=== PATIENT | male | born 1940 | race Caucasian/White ===

== ENCOUNTER 2023-01-06 10:38 | Outpatient (CLI) | payer BC ==
[2023-01-06] MEDS ORDERED: Magnevist 469MG/ML 20 ML VIAL ONE (13:25)
== END 2023-01-06 10:39 | disposition home or self-care (01) ==
LOC: CSHMRI 10:38
PROVIDERS: ATTEND Urology
DX: R97.20 Elevated prostate specific antigen [PSA] (principal)
CPT/HCPCS: 72197; 82565; A9579

== ENCOUNTER 2025-01-15 08:58 | Outpatient (CLI) | payer BC | END 2025-01-15 08:59 | disposition home or self-care (01) | LOC: CSHSLEEP 08:58 | PROVIDERS: ATTEND Internal Medicine | DX: G47.33 Obstructive sleep apnea (adult) (pediatric) (principal); R53.83 Other fatigue; G47.00 Insomnia, unspecified; R35.1 Nocturia | CPT/HCPCS: 95811 ==